=== PATIENT | female | born 1935 | race Caucasian/White ===

== ENCOUNTER → 2018-10-23 15:23 | Outpatient (CLI) | payer MEDICARE, SELFPAY ==
--- NOTE | 2018-10-23 15:40 | XR_ITS ---
XR chest 2V HISTORY: ITS.REASON: CHEST CONGESTION ORDERING PHYSICIAN: Loly Hylton PATIENT AGE: 83 years COMPARISON: PA and lateral chest 09/03/2015 FINDINGS: The cardiomediastinal silhouette and pulmonary vascularity are within normal limits. There is mild aortic tortuosity.. The lungs are clear without infiltrates, suspicious nodules, or pleural effusions. There may be minimal scarring in the lingula. There is generalized osteopenia the thoracic spine with mild kyphotic curvature. No acute bony abnormalities. IMPRESSION: Nonacute chest findings
== END ==
PROVIDERS: PCP Nurse Practitioner Family; Visit Provider Nurse Practitioner Family
DX: R09.89 Other specified symptoms and signs involving the circulatory and respiratory systems (principal)
CPT/HCPCS: 71046

== ENCOUNTER → 2019-03-13 11:25 | Outpatient (CLI) | payer MEDICARE, SELFPAY ==
--- NOTE | 2019-03-13 11:36 | XR_ITS ---
PROCEDURE: XR KNEE LT 3V CLINICAL INDICATION: KNEE PAIN COMPARISON: No exams were available for comparison FINDINGS: No fracture or dislocation. No lytic or blastic change. There is normal mineralization. There are mild osteoarthritic changes involving all 3 compartments with chondrocalcinosis of the medial and lateral meniscus. Coarse calcification is present in the suprapatellar region and in the popliteal fossa which has an atypical appearance possibly related to synovial calcification. Other findings:None. IMPRESSION: Osteoarthritis with chondrocalcinosis Coarse calcification in the suprapatellar region and popliteal fossa possibly related to synovial calcification or capsular calcification of the knee. CT or MRI may be of further value. Dictated by: Perry Montiel MD 03/13/2019 13:31 Signed by: <Electronically signed by Perry Montiel MD in [place]> 03/13/2019 13:31
--- NOTE | 2019-03-13 11:36 | XR_ITS ---
PROCEDURE: XR MULTIPLE SPINE 6+V CLINICAL INDICATION: BACK PAIN,CERVICAL DISC DISEASE,ARTHRITIS Neck pain COMPARISON: No exams were available for comparison FINDINGS: Cervical spine: There is exaggeration of the cervical lordosis. There degenerative disc disease at C4-C5-C5-C6 and C6-C7. There is 3 mm anterolisthesis of C4. Endplate hypertrophic changes are present at C5-C6 and C7. There is 2-3 mm anterolisthesis of C6. Facet arthritic changes are present from C3-C7. No fracture or dislocation. There foramina are widely patent. Lumbar spine: Mild thoracolumbar curvature convex right. Prior fusion at L4-5 with disc spacers present. There is 3 mm anterolisthesis of L4. Degenerative disc disease is present at L3-L4 and L5-S1. Facet arthritic changes are present from L3-S1. No obvious fracture or dislocation. No lytic or blastic change. IMPRESSION: Degenerated changes of the cervical and lumbar spine as detailed above. Postsurgical changes of the lumbar spine. Dictated by: Perry Montiel MD 03/13/2019 13:26 Signed by: <Electronically signed by Perry Montiel MD in [facility]> 03/13/2019 13:26
== END ==
PROVIDERS: PCP Family Medicine; Visit Provider Nurse Practitioner Family
DX: M54.5 Low back pain (principal); M54.2 Cervicalgia; M25.562 Pain in left knee
CPT/HCPCS: 72084; 73562

== ENCOUNTER → 2019-08-05 12:20 | Outpatient (CLI) | payer MEDICARE, SELFPAY ==
--- NOTE | 2019-08-05 12:25 | XR_ITS ---
PROCEDURE: XR FOOT RT MIN 3V CLINICAL INDICATION: RT TOE PAIN Pain of the great toe COMPARISON: No exams were available for comparison FINDINGS: No fracture or dislocation. No lytic or blastic change. There is normal mineralization. Moderate to severe osteoarthritic changes are present at the 1st MTP joint. There is mild spurring along the dorsal and proximal aspect of the navicular and there is a small extra ossicle noted along the talar neck. No fracture or dislocation. Other findings:None. 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
== END ==
PROVIDERS: PCP Nurse Practitioner Family; Visit Provider Nurse Practitioner Family
DX: M79.674 Pain in right toe(s) (principal)
CPT/HCPCS: 73630

== ENCOUNTER → 2021-04-21 09:08 | Outpatient (CLI) | payer MEDICARE, SELFPAY ==
--- NOTE | 2021-04-21 09:20 | XR_ITS ---
PROCEDURE: XR DEXA AXIAL SKELETON CLINICAL HISTORY: OSTEOPOROSIS COMPARISON: No exams were available for comparison FINDINGS: The right hip BMD is 0.827 with a T-score of -0.2. The left hip BMD is 0.769 with a T-score of -1.4. The lumbar spine BMD is 1.065 with a T-score of 0.2. IMPRESSION: This patient is considered osteopenic according to the World Health Organization criteria. Bone density is between 10 and 25 percent below young normal. Fracture risk is moderate. Treatment is advised. Based on these results a follow-up exam is recommended in 2 year. Dictated by: Perry Montiel MD 04/21/2021 13:32 Perry Montiel MD in [facility] 04/21/2021 13:32
--- NOTE | 2021-04-21 09:20 | MM_ITS ---
PROCEDURE INFORMATION: Exam: MG Bilateral Screening 3D Mammography Exam date and time: 04/21/2021 9:20 AM Age: 85 years old Clinical indication: Encounter for screening mammogram for malignant neoplasm of breast TECHNIQUE: Imaging protocol: Bilateral screening tomosynthesis and 2D mammography including computer-aided detection (CAD) when performed. COMPARISON: No relevant prior studies available. FINDINGS: MAMMOGRAPHY: Breast composition: The breast tissue is composed of scattered areas of fibroglandular density. Mass: None. Architectural distortion: None. Calcifications: No suspicious calcifications. Asymmetric density: None. Skin thickening: None. Axillary adenopathy: None. IMPRESSION: No mammographic evidence of malignancy. Annual screening is recommended unless otherwise clinically indicated. ASSESSMENT: BI-RADS Category 1: Negative
== END ==
PROVIDERS: PCP Family Medicine; Visit Provider Nurse Practitioner Family
DX: Z12.31 Encounter for screening mammogram for malignant neoplasm of breast (principal); M81.0 Age-related osteoporosis without current pathological fracture
CPT/HCPCS: 77063; 77067; 77080